=== PATIENT | male | born 2000 | race African-American/Black ===

== ENCOUNTER 2023-03-05 16:51 | Emergency (ER) | payer MEDICAID, SELFPAY ==
[2023-03-05 17:00] VITALS: BP 123/92; PULSE 91; RESP 18; TEMP 36.8; O2SAT 98; BMI 26.6
--- NOTE | 2023-03-05 17:01 | ED.OVERDOSE1 ---
HPI - Overdose General Stated Complaint: Nausea, Request Rehab Time Seen by Provider: 03/05/23 16:58 Source: patient Mode of arrival: ambulance Limitations: no limitations History of Present Illness HPI Narrative: 22-year-old female presents by squad for an overdose today and unknown time and he is requesting to be placed in rehab. He states that he is from [place] and is homeless. He states that he used a pressed pill but had oxycodone 30 mg and fentanyl. He was at the gas station and someone gave him Narcan. He was trying to find a ride home from the gas station and someone called the squad. He states he is only here because squad brought him. He does not know what time he was given Narcan. Denies dizziness, headache, vision changes, abd or back pain, n/v/d, SOB or CP Review of Systems ROS Status of ROS 10 or more systems reviewed and unremarkable except as noted in history and below Exam Narrative Exam Narrative: General: A&Ox3, no distress, talking in full an complete sentences skin: warm, dry, intact head: normocephalic, atraumatic eyes: EOMI nose: nares patent neck: supple, trachea midline respiratory: non-labored extremities: FROM x 4 neuro: A&Ox3 psych: appropriate mood and affect, cooperative MDM - Overdose MDM Narrative Medical decision making narrative: Patient was asked to sign out AMA as he states that he has a cell phone and he can have his uncle pick him up and he will sign himself into rehab. He did not want to go to [place] as he has an ex-girlfriend there. He was given a packet of referrals for rehab. Patient is asymptomatic and A&O x3. F/u with PCP. afebrile, not tachypneic, not tachycardic, not hypoxic, non toxic appearing and ambulating at baseline and hemodynamically stable to be d/c. answered all questions. educated when to return to ER. Discharge Plan Discharge Clinical Impression: Overdose Qualifiers: Encounter type: initial encounter Injury intent: undetermined intent Qualified Code(s): T50.904A - Poisoning by unspecified drugs, medicaments and biological substances, undetermined, initial encounter Patient Disposition: Home, Self-Care Time of Disposition Decision: 17:02 Condition: Good Mode of Transportation: Private Vehicle Instructions: Adult Overdose (ED) Stand Alone Forms: Portal Instructions
== END 2023-03-05 17:04 | disposition home or self-care (01) ==
PROVIDERS: Emergency Provider Emergency Medicine
DX: T50.904A Poisoning by unspecified drugs, medicaments and biological substances, undetermined, initial encounter (principal); Z59.00 Homelessness unspecified
CPT/HCPCS: 99283